=== PATIENT | female | born 1990 | race African-American/Black ===

== ENCOUNTER 2025-01-06 07:45 | Inpatient (IN) | payer SELFPAY ==
[~2025-01-06] VITALS: Ht 170.2 cm; Wt 90.7 kg
[2025-01-06] MEDS: SODIUM CHLORIDE 0.9% 1,000 ML IV ONE (08:39)
[2025-01-06] MEDS: ONDANSETRON HCL 4MG/2ML INJ IV ONE ×2 (08:39→10:44)
[2025-01-06 09:02] LABS: BASOPHILS % 0.4 % (0.0-2.0); EOSINOPHILS % 0.1 % (0.0-5.0); HEMATOCRIT. 37.7 % (36.0-48.0); HEMOGLOBIN. 11.9 g/dL (12.0-16.0); LYMPHOCYTES % 10.1 % (20.0-50.0); MEAN PLATELET VOLUME 9.2 fl (7.4-10.4); MONOCYTES % 3.5 % (2.0-8.0); NEUTROPHILS % 85.9 % (40.0-76.0); PLATELET 320 x1000/uL (130-400); RED BLOOD CELL COUNT 4.93 mill/uL (4.2-5.4); RED CELL DISTRIBUTION WIDTH 16.2 % (11.6-14.6)
[2025-01-06 09:25] LABS: CREATININE 0.6 mg/dL (0.6-1.0)
[2025-01-06 09:26] LABS: UREA NITROGEN BLOOD 7 mg/dL (9-23)
[2025-01-06 09:27] LABS: ASPARTATE AMINOTRANSFERASE 26 IU/L (<34)
[2025-01-06 09:28] LABS: BILIRUBIN DIRECT 0.2 mg/dL (<=3.0); BILIRUBIN TOTAL 0.7 mg/dL (0.1-1.0); PROTEIN TOTAL 8.0 g/dL (6.0-8.3)
[2025-01-06] MEDS: ACETAMINOPHEN 650MG/20.3ML UDC PO ONE (10:43)
[2025-01-06] MEDS: MORPHINE SULFATE 4 MG/ML INJ (FOR IV/IM USE) IV ONE (10:48)
[2025-01-06] MEDS: CEFTRIAXONE 1GM/50ML 50 ML IV ONE (10:50)
[2025-01-06 11:08] LABS: CLARITY URINE CLEAR (CLEAR); COLOR URINE YELLOW (YELLOW); GLUCOSE URINE NEGATIVE (NEGATIVE); KETONES URINE 1+ (NEGATIVE); LEUKOCYTE ESTERASE URINE TRACE (NEGATIVE); NITRITE URINE NEGATIVE (NEGATIVE); OCCULT BLOOD URINE 1+ (NEGATIVE); PH URINE 7.0 (4.5-8.0); PROTEIN URINE 1+ (NEGATIVE); SPECIFIC GRAVITY URINE 1.032 (1.005-1.030); UROBILINOGEN URINE 1.0 E.U./dL (0.2-1.0)
[2025-01-06] MEDS ORDERED: DEXTROSE 50% WATER 50ML SYRINGE IV PRN ×2 (11:30→16:00)
[2025-01-06] MEDS ORDERED: IPRATROPIUM/ALBUTEROL 0.5-3(2.5)MG/3ML NEB HHN PRN (11:30)
[2025-01-06] MEDS: KCL 20MEQ/100ML PREMIX 100 ML IV SCH (11:45)
[2025-01-06 11:53] LABS: BACTERIA URINE 1+; MUCUS URINE 1+ /lpf (< = 2+); SQUAMOUS EPITHELIAL CELL URINE 2+ /lpf (RARE/1+); YEAST URINE NONE SEEN
[2025-01-06 12:06] LABS: LDL CHOLESTEROL 102 mg/dL (5-100); TRIGLYCERIDE 80 mg/dL (0-150)
[2025-01-06 12:08] LABS: PHOSPHORUS 2.2 mg/dL (2.5-4.9)
[2025-01-06 12:10] LABS: T4 FREE 1.57 ng/dL (0.89-1.76)
[2025-01-06] MEDS: DEXT 5%/LACTATED RINGERS 1,000 ML IV SCH (12:39)
[2025-01-06 13:00] VITALS: BP 136/84; PULSE 91; RESP 18; TEMP 36.6; TEMP 36.6404; O2SAT 100
[2025-01-06] MEDS: ONDANSETRON HCL 4MG/2ML INJ IV SCH (14:42)
[2025-01-06] MEDS: FAMOTIDINE 20MG/2ML VIAL IV SCH (14:42)
[2025-01-06] MEDS: ACETAMINOPHEN 325MG TABLET PO PRN (15:02)
[2025-01-06 16:00] VITALS: BP 167/95; PULSE 59; RESP 19; TEMP 36.8; O2SAT 100
[2025-01-06] MEDS ORDERED: HYDRALAZINE 20MG/ML VIAL IV PRN (16:00)
[2025-01-06] MEDS: POTASSIUM CHLORIDE 20MEQ TABLET SR PO NR (17:52)
[2025-01-06] MEDS: PRENATAL VIT/FE FUMARATE/FA TABLET PO SCH (17:52)
[2025-01-06] MEDS: HYDRALAZINE 10 MG in SODIUM CHLORIDE 0.9% 50 ML IV PRN (18:46)
[2025-01-06] MEDS: INSULIN LISPRO 100 UNITS/ML SUBCUT SCH (18:50)
[2025-01-06 19:04] LABS: CREATININE 0.6 mg/dL (0.6-1.0)
[2025-01-06 19:05] LABS: UREA NITROGEN BLOOD 7 mg/dL (9-23)
[2025-01-06] MEDS ORDERED: KCL 20MEQ/100ML PREMIX 100 ML IV SCH (19:45)
[2025-01-06] MEDS ORDERED: POTASSIUM CHLORIDE 20 MEQ in DEXT 5% WATER 90 ML IV ONE (19:45)
[2025-01-06] MEDS ORDERED: DEXT IV SCH (21:00)
[2025-01-06] MEDS ORDERED: KCL IV SCH (21:00)
[2025-01-06] MEDS ORDERED: NACL IV SCH (21:00)
[2025-01-07 07:42] LABS: *AMPHETAMINES SCREEN URINE NEGATIVE (NEGATIVE)
[2025-01-07 07:43] LABS: *BARBITURATES SCREEN URINE NEGATIVE (NEGATIVE); *BENZODIAZEPINES SCREEN URINE NEGATIVE (NEGATIVE); *COCAINE SCREEN URINE NEGATIVE (NEGATIVE); CANNABINOID URINE SCREEN PRESUMPTIVE POSITIVE (NEGATIVE); ECSTASY MDMA SCREEN URINE NEGATIVE (NEGATIVE); METHADONE URINE SCREEN NEGATIVE (NEGATIVE); OPIATES URINE SCREEN NEGATIVE (NEGATIVE); PHENCYCLIDINE URINE SCREEN NEGATIVE (NEGATIVE)
[2025-01-07] MEDS ORDERED: CEFTRIAXONE 1GM/50ML 50 ML IV SCH (09:00)
== END 2025-01-06 21:00 | disposition left against medical advice (07) | DRG 566 ==
LOC: ER 07:45 → EDBEDREQTM 10:45 → EDBEDREQ 10:45 → ENRESERV 11:35 → 6EST 13:01
PROVIDERS: ADMIT Internal Medicine; ATTEND Internal Medicine
DX: O21.1 Hyperemesis gravidarum with metabolic disturbance (principal); O99.891 Other specified diseases and conditions complicating pregnancy; O99.281 Endocrine, nutritional and metabolic diseases complicating pregnancy, first trimester; Z3A.08 8 weeks gestation of pregnancy; R73.03 Prediabetes; Z53.29 Procedure and treatment not carried out because of patient's decision for other reasons
CPT/HCPCS: 36415; 76801; 80048; 80061; 80076; 80305; 81003; 82962; 83036; 83605; 83735; 84100; 84145; 84439; 84443; 84702; 85025; 86850; 86900; 93970; 96361; 96365; 96375; 96376; 99285; J0360; J0696; J1308; J1815; J2270; J2405; J3480; J7030